=== PATIENT | female | born 1965 | race Caucasian/White ===

== ENCOUNTER 2023-01-22 13:37 | Emergency (ER) | payer OTHER ==
[2023-01-22 14:01] VITALS: TEMP 97.8
--- NOTE | 2023-01-22 14:56 | ERPHSYRPT ---
- History of Present Illness Time Seen by Provider: 01/22/23 13:45 Source: patient Exam Limitations: no limitations Patient Subjective Stated Complaint: pt here for right earache off and on for months, states drainage yesterday Triage Nursing Assessment: pt alert, resp easy, skin w/d/p. no drainage from ear, no fever Physician History: 57-year-old female presented in the ER with chief complaint of right earache for the last couple of days with progressive worsening since yesterday. Patient reports minimal discharge noticed yesterday. Reports mild decreased hearing. Does have sinus congestion. No fever or chills reported. Denies any difficulty breathing cough. Allergies/Adverse Reactions: acetaminophen [From Vicodin] Allergy (Verified 01/22/23 13:57) hydrocodone [From Vicodin] Allergy (Verified 01/22/23 13:57) Hx Tetanus, Diphtheria Vaccination/Date Given: No Hx Influenza Vaccination/Date Given: No Hx Pneumococcal Vaccination/Date Given: No Immunizations Up to Date: Yes Travel Risk - International Travel Have you traveled outside of the country in past 3 weeks: No - Coronavirus Screening Are you exhibiting any of the following symptoms?: No Close contact with a COVID-19 positive Pt in past 14-21 Days: No - Vaccine Status Have you recieved a Covid-19 vaccination: No - Review of Systems Constitutional: No Symptoms Eyes: No Symptoms Ears, Nose, & Throat: Ear Pain, Ear Discharge, Sinus Drainage Respiratory: No Symptoms Cardiac: No Symptoms Abdominal/Gastrointestinal: No Symptoms Musculoskeletal: No Symptoms Skin: No Symptoms Neurological: No Symptoms Endocrine: No Symptoms Hematologic/Lymphatic: No Symptoms - Past Medical History Pertinent Past Medical History: Yes Cardiac History: Coronary Artery Disease, High Cholesterol, Hypertension, Myocardial Infarction ([place]) Endocrine Medical History: Diabetes Type II - Past Surgical History Past Surgical History: Yes Cardiac: Cardiac Catheterization, Cardiac Stent Musculoskeletal: Orthopedic Surgery - Social History Smoking Status: Never smoker Exposure to second hand smoke: No Drug Use: none Patient Lives Alone: No - Nursing Vital Signs Nursing Vital Signs: Initial Vital Signs Temperature 97.8 F 01/22/23 13:55 Pulse Rate 95 H 01/22/23 13:55 Respiratory Rate 20 01/22/23 13:55 Blood Pressure 142/82 01/22/23 13:55 O2 Sat by Pulse Oximetry 98 01/22/23 13:55 Pain Scale Pain Intensity 6 - Physical Exam General Appearance: no apparent distress, alert Eye Exam: bilateral eye: normal inspection, PERRL, EOMI Ear Exam: right ear: TM normal, bilateral ear: auricle normal, canal normal Nasal Exam: normal inspection Throat Exam: normal, pharynx normal Neck Exam: normal inspection, non-tender, supple, full range of motion Cardiovascular/Respiratory Exam: normal breath sounds, regular rate/rhythm Abdominal Exam: non-tender, soft Neurologic Exam: alert, oriented x 3, cooperative, land acquisition specialist II-XII nml as tested Skin Exam: normal color SpO2 Interpretation: normal SpO2: 94 O2 Delivery: Room Air - Progress Progress Note: 01/22/23 14:55 57-year-old female presented in the ER with chief complaint of right earache for the last couple of days with progressive worsening since yesterday. Patient reports minimal discharge noticed yesterday. Reports mild decreased hearing. Does have sinus congestion. No fever or chills reported. Denies any difficulty breathing cough. She has right otitis media, bilateral negative mastoid tenderness. Started on antibiotics. Outpatient follow-up. Counseled pt/family regarding: diagnosis, need for follow-up Medical Desision Making - Diagnostic Testing Diagnostic test were ordered, analyzed, and reviewed by me: No - Risk of complications The pt has a mod risk of morbidity or mortality based on: Need for prescription drug management - Departure Departure Disposition: Home Clinical Impression: Otitis media Condition: Stable Critical Care Time: No Referrals: DOCTOR,NO FAMILY [Primary Care Provider] - Follow up/PCP as directed Instructions: Ear Infections in Adults (DC) Additional Instructions: Follow-up with primary care for reevaluation. Return to ER for any worsening. Prescriptions: Amox Tr/Potass Clav. 875 mg [Augmentin 875-125 Tablet] 875 mg PO BID #20 tablet Fluconazole [Diflucan ] 150 mg PO DAILY 1 Days #1 tablet
[2023-01-22 15:16] VITALS: BP 114/88; PULSE 70; RESP 16
[2023-01-22 23:13] VITALS: O2SAT 94
== END 2023-01-22 15:17 | disposition home or self-care (01) ==
LOC: ED 13:37
DX: H66.91 Otitis media, unspecified, right ear (principal); H92.01 Otalgia, right ear; E78.5 Hyperlipidemia, unspecified; I10 Essential (primary) hypertension; E11.9 Type 2 diabetes mellitus without complications; Z79.899 Other long term (current) drug therapy; Z28.310 Unvaccinated for COVID-19
CPT/HCPCS: 99281